=== PATIENT | female | born 1995 | race Caucasian/White ===

== ENCOUNTER → 2020-03-13 | Outpatient (REF) | payer MEDICAID ==
[2020-03-13 17:58] LABS: HEMATOCRIT 37.3 % (36.0-47.0); HEMOGLOBIN 12.4 g/dl (12.0-15.5); MEAN CORPUSCULAR HEMOGLOBIN 29.7 pg (27.0-33.0); MEAN CORPUSCULAR HGB CONC 33.2 g/dl (32.0-36.5); MEAN CORPUSCULAR VOLUME 89.4 fl (80.0-96.0); PLATELET COUNT, AUTOMATED 249 10^3/uL (150-450); RED BLOOD COUNT 4.17 10^6/uL (4.00-5.40); WHITE BLOOD COUNT 11.3 10^3/uL (4.0-10.0)
[2020-03-14 10:02] LABS: HEPATITIS B SURFACE ANTIGEN NEGATIVE (NEGATIVE); HEPATITIS C VIRUS ABY INDEX 0.2 INDEX (<0.8); HIV 1&2 SCREEN CENTAUR NEGATIVE (NEGATIVE)
== END ==
LOC: M LAB REF 16:11
PROVIDERS: ATTEND Obstetrics & Gynecology
DX: Z32.01 Encounter for pregnancy test, result positive (principal)

== ENCOUNTER → 2020-03-18 | Outpatient (CLI) | payer MEDICAID ==
--- NOTE | 2020-03-18 08:40 | REP ---
OBSTETRIC SONOGRAPHY: HISTORY: Supervision of . FINDINGS: Transabdominal scanning demonstrates a living intrauterine gestation in a free-floating lie. [place]-rump length is 43 mm corresponding with a gestational age estimate of 11 weeks 1 day. heart rate is recorded at 161 beats per minute. motion was observed. No subchorionic hemorrhage is seen. A posterior placenta is seen without evidence of previa. There is a 0.7 cm cystic area in the maternal right ovary consistent with corpus luteum. No gross anomaly is seen. IMPRESSION: Viable single intrauterine gestation at 11 weeks 1 day by crown-rump length. ZAYRA by sonography October 06, 2020.
== END ==
LOC: EDUNIT# 07:00 → M WHC 07:01
PROVIDERS: ATTEND Obstetrics & Gynecology
DX: Z32.01 Encounter for pregnancy test, result positive (principal); Z3A.11 11 weeks gestation of pregnancy

== ENCOUNTER → 2020-07-14 | Outpatient (CLI) | payer OTHER, MEDICAID ==
[2020-07-14 12:44] LABS: HEMATOCRIT 32.8 % (36.0-47.0); HEMOGLOBIN 10.8 g/dl (12.0-15.5); MEAN CORPUSCULAR HEMOGLOBIN 29.1 pg (27.0-33.0); MEAN CORPUSCULAR HGB CONC 32.9 g/dl (32.0-36.5); MEAN CORPUSCULAR VOLUME 88.4 fl (80.0-96.0); PLATELET COUNT, AUTOMATED 238 10^3/uL (150-450); RED BLOOD COUNT 3.71 10^6/uL (4.00-5.40); WHITE BLOOD COUNT 12.8 10^3/uL (4.0-10.0)
== END ==
LOC: M LAB 11:11
PROVIDERS: ATTEND Advanced Practice Midwife
DX: Z34.82 Encounter for supervision of other normal pregnancy, second trimester (principal); Z3A.00 Weeks of gestation of pregnancy not specified

== ENCOUNTER → 2020-09-02 | Outpatient (REF) | payer OTHER | LOC: M LAB REF 16:15 | PROVIDERS: ATTEND Advanced Practice Midwife | DX: Z34.83 Encounter for supervision of other normal pregnancy, third trimester (principal); Z3A.00 Weeks of gestation of pregnancy not specified ==

== ENCOUNTER → 2020-11-14 | Outpatient (REF) | payer OTHER | LOC: M LAB REF 12:23 | PROVIDERS: ATTEND Advanced Practice Midwife | DX: A49.9 Bacterial infection, unspecified (principal) ==